=== PATIENT | male | born 1995 | race Caucasian/White ===

== ENCOUNTER 2025-04-15 01:48 | Emergency (ER) | payer OTHER, SELFPAY ==
[2025-04-15 01:51] VITALS: BP 124/90
[2025-04-15 02:21] LABS: % Basophils 0.3 % (0-2); % Eosinophils 2.2 % (0-6); % Immature Granulocytes 0.2 % (0-0.5); % Lymphocytes 44.2 % (20.5-51.1); % Monocytes 10.6 % (1.7-9.3); % Neutrophils 42.5 % (42.2-75.2); Absolute Eosinophils 0.1 10^3/uL (0-0.7); Absolute Lymphocytes 2.9 10^3/uL (1.2-3.4); Absolute Monocytes 0.7 10^3/uL (0.1-0.6); Absolute Neutrophils 2.8 10^3/uL (1.4-6.5); Hematocrit 39.2 % (39.0-52.0); Mean Corp Hgb Conc. 35.7 g/dL (33.0-37.0); Mean Corpuscular Hgb 31.3 pg (27.0-31.0); Mean Corpuscular Volume 87.7 fL (80.0-94.0); Nucleated Red Blood Cells % 0 % (-); Platelet Count 280 10^3/uL (130-400); Red Blood Cell Count 4.47 10^6/uL (4.70-6.10); Red Cell Dist. Width 12.1 % (11.5-14.5); White Blood Cell Count 6.5 10^3/uL (4.8-10.8)
[2025-04-15 02:34] LABS: ALT (SGPT) 57 U/L (0-50); AST (SGOT) 37 U/L (17-59); Albumin 4.6 g/dl (3.5-5.0); Alkaline Phosphatase 55 U/L (38-126); Blood Urea Nitrogen 12 mg/dl (9-20); Calcium 9.1 mg/dl (8.4-10.2); Carbon Dioxide 24 mmol/L (22-30); Chloride 112 mmol/L (98-107); Glucose 97 mg/dl (70-99); Sodium 144 mmol/L (135-145); Total Bilirubin 0.7 mg/dl (0.2-1.3); Total Protein 7.4 g/dl (6.3-8.2); eGFR > 60.00
[2025-04-15] MEDS: ZOFRAN 4 MG IV (04:08)
[2025-04-15] MEDS: TORADOL 30 MG IV (04:08)
--- NOTE | 2025-04-15 06:07 | ED.GENMED ---
History of Present Illness
General
Chief Complaint: Flank Pain
Source: patient
Exam Limitations: none
Time Seen by Provider: 04/15/25 06:00
Nursing documentation reviewed up to this point in time: agreed with
History of Present Illness
History of Present Illness:
SEE mdm
Past History
Past History
ED Past Medical History: Other ( hyperbilirubinemia); Negative Asthma, HTN, Hypercholesterolemia or NIDDM
ED Past Surgical History: None
Social History
Tobacco: Non-smoker
Alcohol: None
Drug: None
Personal: Single
Living: with family
Employment: Employed
Family History
Family History: Other (Noncontributory)
Review of Systems
Review of Systems
Allergies reviewed?: Yes
All Other Systems: Not applicable
Phy Exam
Physical Exam
Physical Exam:
GENERAL: Alert, COMFORTABLE
Neck: supple
CARDIAC: Regular rate and rhythm .
LUNGS: Clear breath sounds bilaterally, no acute respiratory distress, no wheezes/rales/rhonchi
ABDOMEN: Soft, normal bowel sounds, nondistended no flank tenderness; no cva tenderness; no guarding, no rebound, neg mora's
NEUROLOGICAL: Alert and oriented, no focal neuro deficits
SKIN: Warm and dry, skin intact.
PSYCH: Normal and appropriate interaction.
Course
Orders/Labs/Results
Orders:
Orders
04/15/25 02:02
Complete Blood Count/With Diff Urgent
Comprehensive Metabolic Panel Urgent
04/15/25 04:06
Ketorolac [Toradol] 30 mg .ROUTE .STK-MED ONE
Ondansetron Injectable [Zofran] 4 mg .ROUTE .STK-MED ONE
04/15/25 04:07
Ketorolac [Toradol] 30 mg IV NOW STA
04/15/25 04:08
Ondansetron Injectable [Zofran] 4 mg IV NOW STA
04/15/25 06:05
CT Abd/pel Without Iv Or Oral Urgent
Comment:
Reason For Exam: L flank pain since yesterday, h/o stones
0.9% Sodium Chloride 1000 ml [Nss] 1,000 ml IV BOLUS
04/15/25 06:26
Urinalysis Urgent
Date Specimen was Collected: 04/15/25
Time Specimen was Collected: 01:53
Urine Microscopic Urgent
Date Specimen was Collected: 04/15/25
Time Specimen was Collected: :53
04/15/25 07:39
Acetaminophen [Tylenol] 1,000 mg PO NOW STA
Tamsulosin [Flomax] 0.4 mg PO NOW STA
Abnormal Lab Results
04/15/25 04/15/25
02:02 06:26
RBC 4.47 L 10^6/uL
(4.70-6.10)
MCH 31.3 H pg
(27.0-31.0)
Absolute Monos (auto) 0.7 H 10^3/uL
(0.1-0.6)
Monocytes % 10.6 H %
(1.7-9.3)
Chloride 112 H mmol/L
(98-107)
ALT 57 H U/L
(0-50)
Urine RBC 3-6 A /HPF
(0-2)
Urine Albumin 1+ A
(Neg - Trace)
04/15/25 02:02
04/15/25 02:02
Vital Signs
Initial and Last Documented VS:
Initial Vital Signs
Temp Pulse Resp BP Pulse Ox
36.6 C 68 22 124/90 98
04/15/25 01:51 04/15/25 01:51 04/15/25 01:51 04/15/25 01:51 04/15/25 01:51
Last Documented Vital Signs
Temp Pulse Resp BP Pulse Ox
36.6 C 80 22 123/85 96
04/15/25 01:51 04/15/25 07:18 04/15/25 01:51 04/15/25 07:13 04/15/25 08:30
MDM/Problems Addressed
Differential Diagnosis Includes:
see MDM
MDM/Problems Addressed:
Note:
CHIEF COMPLAINT(S)
Flank pain
HISTORY OF PRESENT ILLNESS
The patient is a 30-year-old male with a history of kidney stones, presenting with left-sided flank pain that began yesterday. This is the patients third episode of kidney stones; previous stones resolved spontaneously without intervention. The pain
was initially mild but escalated last night, at which time it reached a severity of 10 out of 10. The patient describes associated hematuria, noting pinkish urine for two to three instances yesterday, which then returned to normal. There is no
dysuria, urinary frequency, fever, chills, nausea, or vomiting. Pain medication administered earlier today has reduced the pain severity to 2 out of 10.
ADDITIONAL HISTORY OBTAINED FROM SOURCES OTHER THAN THE PATIENT
According to the patient, no significant interventions or outcomes are reported from prior consultations with a urologist.
CHRONIC MEDICAL CONDITIONS SIGNIFICANTLY AFFECTING CARE
Chronic conditions affecting care: recurrent nephrolithiasis.
SOCIAL HISTORY
Denies tobacco and alcohol use.
REVIEW OF SYSTEMS
- Genitourinary: Hematuria reported; no dysuria or frequency.
- Constitutional: Denies fever and chills.
- Gastrointestinal: Denies nausea and vomiting.
PHYSICAL EXAM
- Genitourinary: Pain localized from the left flank to the left testicle.
DIFFERENTIAL DIAGNOSIS
The Differential Diagnosis includes, in no particular order and is not limited to:
- Nephrolithiasis
- Urinary tract infection
- Pyelonephritis
- Ureteral obstruction
- Renal mass
- Trauma to the kidney
- Hydronephrosis
- Abdominal aortic aneurysm
- Testicular torsion
- Musculoskeletal pain
Note:
Disposition:
SUMMARY OF ENCOUNTER
The patient is a 30-year-old male with a history of kidney stones, presenting with left-sided flank pain since the previous day, which worsened overnight. The patient also experienced some nausea without vomiting. Medical treatment in the emergency
department included administration of ketorolac (Toradol) and an antiemetic, after which the patient reported significant improvement in symptoms. The patient was found to be comfortable on examination, with no abdominal or flank tenderness.
INDEPENDENT REVIEW OF LABS AND INTERPRETATION OF TESTS
My independent review of the Complete Blood Count (CBC) shows normal white blood cell counts. My independent review of the renal function test shows normal creatinine levels. My independent interpretation of the CT scan shows a distal left
ureterovesical junction (UVJ) stone with moderate left hydronephrosis. The stone appears to be passable.
MEDICATION RECONCILIATION
The patient was administered ketorolac (Toradol) in the emergency department. Prescriptions for home management include tamsulosin (Flomax) daily until the stone passes, ibuprofen every eight hours as needed, and an antiemetic every six hours to
manage nausea.
DISPOSITION
The patient will continue with prescribed medications and was advised to follow up with a urologist for further management.
MEDICAL DECISION MAKING
Chronic conditions affecting care: recurrent nephrolithiasis. Differential diagnoses considered include nephrolithiasis, ureteral obstruction, and hydronephrosis. Based on clinical assessment and imaging, nephrolithiasis with associated
hydronephrosis was diagnosed. Given the stable condition after treatment and a passable stone, outpatient management was considered appropriate.
PATHOLOGIES TO CONSIDER
Nephrolithiasis with ureteral obstruction, hydronephrosis.
*Pulse Oximetry
SaO2: 98
Oxygen Mode of Delivery: Room air
Patient hypoxic: no (96)
*Critical Care Note
Total Time (30-74mins, 75-104mins- exclusive of procedures): Not Applicable
ED Attending Note
-
Portions of this chart may have been created with voice recognition software.� Occasional wrong word or��sound alike� substitutions may have occurred due to the inherent limitations of voice recognition software.
Discharge Plan
Departure
Patient Disposition: Home (Routine Discharge)
Date of Disposition: 04/15/25
Time of Disposition: 07:36
Patient with high blood pressure during this ER visit?: No
Condition: Fair
Covid-19: Not Applicable
Discharge Problem:
Kidney stone
Instructions: Kidney Stones (DC)
Prescriptions:
New
oxycodone 5 mg capsule
5 mg PO BID PRN (Reason: Pain) Qty: 5 0RF
tamsulosin [Flomax] 0.4 mg capsule
0.4 mg PO DAILY Qty: 14 0RF
No Action
prednisone 20 mg tablet
20 mg PO BID Qty: 14 0RF
benzonatate 200 mg capsule
200 mg PO TID PRN (Reason: cough) Qty: 20 0RF
promethazine-codeine 6.25-10 mg/5 mL syrup
5 ml PO Q6H PRN (Reason: cough) Qty: 118 0RF
Referrals:
Yanira Prajapati MD [Family Provider, Internal Medicine]
Activity Restrictions/Additional Instructions:
KEEP STAYING HYDRATED
TAKE FLOMAX 0.4 MG ONCE A DAY UNTIL YOU PASS THE STONE
URINATE THROUGH THE STRAINER EACH TIME YOU PEE
TAKE TYLENOL 2 EXTRA STRENGTH TABS 3 TIMES A DAY FOR PAIN
YOU CAN ALSO TRY MOTRIN 600 MG EVERY 8 HOURS WITH FOOD 2-3 TIMES A DAY NEEDED
IF PAIN IS SEVERE YOU CAN TRY OXYCODONE 5 MG EVERY 6 HOURS NEEDED, THIS IS A NARCOTIC AND YOU CANNOT DRIVE OR DRINK ON THIS MEDICATION.
RETURN FOR: SEVERE PAIN, VOMITING, FEVER, NOT URINATING OR ANY CONCERNS.
OTHERWISE FOLLOW UP WITH YOUR UROLOGIST
Interventions
Interventions:
*Risk Screen - Suicide Last Done: 04/15/25 01:51
*General Assessment Last Done: 04/15/25 05:58
*Neglect/Abuse Screening Last Done: 04/15/25 01:51
*ED- Fall Risk Assessment Last Done: 04/15/25 05:58
*ED COVID-19 Vaccine History Last Done: 04/15/25 05:58
*Nursing Disposition Last Done: 04/15/25 08:58
UJ-Lkvfqr-Hkgknpzlck Assessment Last Done: 04/15/25 05:58
ED-Male Genitourinary Assessment Last Done: 04/15/25 05:58
Discharge Date and Time
Discharge Date/Time: 04/15/25 09:01
Print Language: TONGAN
[2025-04-15] MEDS: NSS 1000 IV (06:23)
[2025-04-15 06:43] LABS: Urine Albumin 1+ (Neg - Trace); Urine Bilirubin Negative (Negative); Urine Character Slightly Cloudy (Clear); Urine Color Yellow; Urine Glucose Negative (Negative); Urine Ketone Negative (Negative); Urine Leukocyte Negative (Negative); Urine Nitrite Negative (Negative); Urine Occult Blood Negative (Negative); Urine Urobilinogen Negative (Neg - 1+)
[2025-04-15 06:53] LABS: Urine Squamous Cell None seen /LPF (Few)
[2025-04-15 06:54] LABS: Urine White Cell None Seen /HPF (0-5)
[2025-04-15 07:13] VITALS: BP 123/85
[2025-04-15] MEDS: FLOMAX 0.4 MG PO (07:55)
[2025-04-15] MEDS: TYLENOL 1000 MG PO (07:55)
== END 2025-04-15 09:01 | disposition home or self-care (01) ==
LOC: EMR 01:48
PROVIDERS: Emergency Medicine; EMERGENCY PHYSICIAN Emergency Medicine; FAMILY PHYSICIAN Internal Medicine
DX: N13.2 Hydronephrosis with renal and ureteral calculous obstruction (principal); Z87.442 Personal history of urinary calculi
CPT/HCPCS: 99284; 96374; 96375; 96361; 74176; 80053; 81003; 81015; 85025

== ENCOUNTER 2025-09-21 09:52 | Emergency (ER) | payer OTHER, SELFPAY ==
[2025-09-21 09:54] VITALS: BP 138/61
[2025-09-21 11:04] VITALS: BMI 28.5
--- NOTE | 2025-09-21 11:29 | ED.GENMED ---
History of Present Illness
General
Chief Complaint: Musculo-Skeletal Complaint
Source: patient
Time Seen by Provider: 09/21/25 11:13
History of Present Illness
History of Present Illness:
30-year-old male presenting to the emergency department for evaluation of right great toe edema and pain while ambulating, noticed erythema at this morning prompting him come to the ER stating he thinks he may have a ingrown toenail. No history of
similar, no other concerns presently. Patient did not take anything for symptoms prior to arrival.
Past History
Past History
ED Past Medical History: Other ( hyperbilirubinemia); Negative Asthma, HTN, Hypercholesterolemia or NIDDM
ED Past Surgical History: None
Social History
Tobacco: Non-smoker
Alcohol: None
Drug: None
Personal: Single
Living: with family
Employment: Employed
Family History
Family History: Other (Noncontributory)
Review of Systems
Review of Systems
All Other Systems: ROS reviewed and negative except as documented in HPI and ROS
Phy Exam
Physical Exam
Physical Exam:
GENERAL: Alert , in no apparent distress
EYE: conjunctiva clear
Head: Normocephalic atraumatic
NECK: Supple,
ENT: mmm.
LUNGS: no acute respiratory distress
NEUROLOGICAL: Alert and oriented
SKIN: Warm and dry, there is erythema along the lateral and proximal nail fold of the great toe, toenail appears to either have onychomycosis or abscess underneath, tenderness to palpation with slight warmth. There is mild soft tissue swelling. I
do not see any evidence for ingrown toenail at this time
MUSCULOSKELETAL: well perfused.
PSYCH: Normal and appropriate interaction.
Scores
Heart Failure Risk
Heart Failure Risk Score: Not Applicable
Heart Score for Chest Pain Patients
STEMI patient?: Not applicable
Withdrawal Assessment of Alcohol
Withdrawal Assessment Completed?: Not applicable
Course
Vital Signs
Initial and Last Documented VS:
Initial Vital Signs
Temp Pulse Resp BP Pulse Ox
98.4 F 115 18 138/61 97
09/21/25 09:54 09/21/25 09:54 09/21/25 09:54 09/21/25 09:54 09/21/25 09:54
Last Documented Vital Signs
Temp Pulse Resp BP Pulse Ox
98.4 F 115 18 138/61 97
09/21/25 09:54 09/21/25 09:54 09/21/25 09:54 09/21/25 09:54 09/21/25 11:30
MDM/Problems Addressed
Differential Diagnosis Includes:
Paronychia
Onychomycosis
Cellulitis
Abscess
No concern for fracture
MDM/Problems Addressed:
30-year-old male presenting to the ER for evaluation of what appears to be a left great toe paronychia versus onychomycosis. I did discuss with patient the possibility of performing digital block and lifting of the toenail where there does appear
to be the infection for possible drainage but that this could also be a fungal infection. We discussed the risk versus benefit of the procedure and ultimately patient preferred to trial a course of antibiotics and foot soaks with Epsom salt and
outpatient follow-up with podiatry. Will initiate the patient on doxycycline and topical high potency steroid cream. Patient advised on return precautions to the ER.
*Pulse Oximetry
SaO2: 97
Oxygen Mode of Delivery: Room air
Patient hypoxic: no
*Critical Care Note
Total Time (30-74mins, 75-104mins- exclusive of procedures): Not Applicable
ED Attending Note
-
Portions of this chart may have been created with voice recognition software.� Occasional wrong word or��sound alike� substitutions may have occurred due to the inherent limitations of voice recognition software.
Discharge Plan
Departure
Patient Disposition: Home (Routine Discharge)
Date of Disposition: 09/21/25
Time of Disposition: 11:
Patient with high blood pressure during this ER visit?: No
Discharge Problem:
Paronychia of great toe of right foot
Instructions: Paronychia - ED (DC)
Prescriptions:
New
doxycycline hyclate 100 mg tablet
100 mg PO BID 7 Days Qty: 14 0RF
betamethasone, augmented [Diprolene (augmented)] 0.05 % ointment
1 applic topical DAILY 14 Days Qty: 45 0RF
No Action
prednisone 20 mg tablet
20 mg PO BID Qty: 14 0RF
benzonatate 200 mg capsule
200 mg PO TID PRN (Reason: cough) Qty: 20 0RF
promethazine-codeine 6.25-10 mg/5 mL syrup
5 ml PO Q6H PRN (Reason: cough) Qty: 118 0RF
oxycodone 5 mg capsule
5 mg PO BID PRN (Reason: Pain) Qty: 5 0RF
tamsulosin [Flomax] 0.4 mg capsule
0.4 mg PO DAILY Qty: 14 0RF
Referrals:
Tiffany Travis DPM [Active, Podiatry]
Referral Note: Please call on Monday morning to make appointment
Interventions
Interventions:
*Risk Screen - Suicide Last Done: 09/21/25 09:54
*General Assessment Last Done: 09/21/25 09:54
*Neglect/Abuse Screening Last Done: 09/21/25 09:54
*ED- Fall Risk Assessment Last Done: 09/21/25 11:04
*ED COVID-19 Vaccine History Last Done: 09/21/25 11:04
*ED Influenza Vaccine History Last Done: 09/21/25 11:04
*Nursing Disposition Last Done: 09/21/25 11:43
ED-Musculoskeletal Assessment Last Done: 09/21/25 11:04
Discharge Date and Time
Discharge Date/Time: 09/21/25 11:43
Print Language: ROMANIAN
== END 2025-09-21 11:43 | disposition home or self-care (01) ==
LOC: EMR 09:52
PROVIDERS: EMERGENCY PHYSICIAN Emergency Medicine; FAMILY PHYSICIAN Internal Medicine
DX: L03.031 Cellulitis of right toe (principal)
CPT/HCPCS: 99282